=== PATIENT | male | born 1940 | race Caucasian/White ===

== ENCOUNTER 2017-06-10 09:27 | Day surgery (SDC) | payer OTHER ==
[2017-06-10] MEDS ORDERED: TETRACAINE 0.5% OPHTH 1 DOSE AFFEYE ONE ×4 (10:30→12:08)
[2017-06-10] MEDS ORDERED: VIGAMOX 0.5% OPHTH 1 DOSE AFFEYE ONE ×5 (10:35→12:18)
[2017-06-10] MEDS ORDERED: PROLENSA OPHTH 1 DOSE AFFEYE ONE (10:46)
[2017-06-10] MEDS ORDERED: ALPHAGAN-P OPHTH 1 DOSE AFFEYE ONE (10:47)
[2017-06-10] MEDS ORDERED: AK-DILATE 2.5% OPHTH 1 DOSE OP ONE ×3 (10:48→10:50)
[2017-06-10] MEDS ORDERED: CYCLOGYL 1% OPHTH 1 DOSE OP ONE ×3 (10:48→10:50)
[2017-06-10] MEDS ORDERED: MYDRIACIL OPHTH 1 DOSE AFFEYE ONE ×3 (10:48→10:50)
[2017-06-10] MEDS: NS 500 ML IV 500 ML IV ONE ×2 (11:06→11:12)
[2017-06-10] MEDS ORDERED: BETADINE OPHTH SOLN 5% EACHEYE ONE (11:48)
[2017-06-10] MEDS ORDERED: ADRENALINE CHL INJ IJ ONE ×2 (11:51→12:08)
[2017-06-10] MEDS ORDERED: XYLOCAINE-MPF 1% IJ ONE ×2 (11:51→12:08)
[2017-06-10] MEDS ORDERED: DUOVISC IO ONE ×2 (11:51→12:08)
[2017-06-10] MEDS ORDERED: BSS OPHTH (PLAIN) 500 ML with VANCOMYCIN HCL 500 MG VIAL 25 MG, ADRENALINE CHL INJ 1 MG IR ONE ×6 (11:52)
[2017-06-10 12:39] VITALS: BP 153/90
== END 2017-06-10 12:40 | disposition home or self-care (01) ==
LOC: SURG1 09:27
PROVIDERS: ATTEND Ophthalmology
PROC: 08RJ3JZ Replacement of Right Lens with Synthetic Substitute, Percutaneous Approach (ICD-10-PCS; principal; 2017-06-10 17:45)
PROC: 08DJ3ZZ Extraction of Right Lens, Percutaneous Approach (ICD-10-PCS; principal; 2017-06-10 17:45)
DX: H25.11 Age-related nuclear cataract, right eye (principal); H25.011 Cortical age-related cataract, right eye
CPT/HCPCS: 99100; A4217; J0170; J3370